=== PATIENT | female | born 1945 | race African-American/Black ===

== ENCOUNTER 2025-07-07 17:31 | Inpatient (IN) | payer MEDICARE ==
[~2025-07-07] VITALS: Ht 160 cm; Wt 97.2 kg
[~2025-07-07 17:31] MED LIST: LOSA100T33; OMEP20CA4 PO
[2025-07-07 18:36] LABS: BASOPHILS % 0.9 % (0.0-2.0); EOSINOPHILS % 1.1 % (0.0-5.0); HEMATOCRIT. 36.2 % (36.0-48.0); HEMOGLOBIN. 11.8 g/dL (12.0-16.0); LYMPHOCYTES % 16.1 % (20.0-50.0); MEAN PLATELET VOLUME 7.9 fl (7.4-10.4); MONOCYTES % 7.3 % (2.0-8.0); NEUTROPHILS % 74.6 % (40.0-76.0); PLATELET 259 x1000/uL (130-400); RED BLOOD CELL COUNT 3.82 mill/uL (4.2-5.4); RED CELL DISTRIBUTION WIDTH 15.0 % (11.6-14.6)
[2025-07-07 18:46] LABS: CREATININE 0.8 mg/dL (0.6-1.0); PROTEIN TOTAL 8.4 g/dL (6.0-8.3); UREA NITROGEN BLOOD 10 mg/dL (9-23)
[2025-07-07 18:48] LABS: ASPARTATE AMINOTRANSFERASE 24 IU/L (<34); BILIRUBIN DIRECT 0.2 mg/dL (<=3.0); BILIRUBIN TOTAL 0.7 mg/dL (0.1-1.0)
[2025-07-07 19:01] LABS: TROPONIN I HIGH SENSITIVITY 9 ng/L (3.0-34)
[2025-07-07] MEDS: KCL 10MEQ/50ML PREMIX 50 ML IV SCH (19:27)
[2025-07-07] MEDS: POTASSIUM CHLORIDE 20MEQ/PACKET PO ONE (19:27)
[2025-07-07] MEDS: FUROSEMIDE 40MG/4ML VIAL IVP ONE (19:28)
[2025-07-07 22:30] VITALS: BP 148/82; PULSE 87; RESP 18; TEMP 36.5; TEMP 36.5292; O2SAT 99
[2025-07-08] MEDS ORDERED: FURO-151 PO (07:35)
[2025-07-08] MEDS ORDERED: NIFE20CA8 PO (07:38)
[2025-07-08 08:00] VITALS: BP_SYST 117; BP_SYST 139; BP_DIAS 71; BP_DIAS 76; PULSE 90; PULSE 95; RESP 18; TEMP 36.4; TEMP 36.5; O2SAT 96
[2025-07-08] MEDS: ASPIRIN 81MG TABLET PO SCH (09:38)
[2025-07-08] MEDS: FUROSEMIDE 40MG/4ML VIAL IVP SCH (09:38)
[2025-07-08] MEDS: NIFEDIPINE XL 60MG TAB PO SCH (09:39)
[2025-07-08 12:00] VITALS: BP 117/71; PULSE 95; RESP 18; TEMP 36.4; O2SAT 96
[2025-07-08] MEDS: LOSARTAN 100 MG TABLET PO SCH (13:20)
[2025-07-08] MEDS ORDERED: DOCUSATE SODIUM 100MG CAPSULE PO PRN (14:00)
[2025-07-08] MEDS ORDERED: CLONIDINE 0.1MG TABLET PO PRN (14:00)
[2025-07-08] MEDS ORDERED: ACETAMINOPHEN 325MG TABLET PO PRN (14:00)
[2025-07-08] MEDS ORDERED: MAGNESIUM/ALUMINUM HYDROXIDE/SIMETHICONE 30ML UDC PO PRN (14:00)
[2025-07-08] MEDS ORDERED: ONDANSETRON HCL 4MG/2ML INJ IV PRN (14:00)
[2025-07-08] MEDS: PANTOPRAZOLE 40MG DR TABLET PO SCH (14:49)
[2025-07-08 20:00] VITALS: BP 101/56; PULSE 92; RESP 19; TEMP 37; O2SAT 95
[2025-07-08 21:21] LABS: PLATELET 275 x1000/uL (130-400); RED BLOOD CELL COUNT 3.70 mill/uL (4.2-5.4); RED CELL DISTRIBUTION WIDTH 15.4 % (11.6-14.6)
[2025-07-08 21:38] LABS: CREATININE 1.0 mg/dL (0.6-1.0); UREA NITROGEN BLOOD 17 mg/dL (9-23)
[2025-07-09] VITALS (7 sets, daily range): BP systolic 104–128; BP diastolic 57–69; PULSE 69–84; RESP 13–18; TEMP 36.4–36.7; O2SAT 93–96
[2025-07-09 08:22] LABS: BASOPHILS % 0.4 % (0.0-2.0); EOSINOPHILS % 1.6 % (0.0-5.0); HEMATOCRIT. 35.6 % (36.0-48.0); HEMOGLOBIN. 11.6 g/dL (12.0-16.0); LYMPHOCYTES % 14.8 % (20.0-50.0); MEAN PLATELET VOLUME 7.9 fl (7.4-10.4); MONOCYTES % 10.8 % (2.0-8.0); NEUTROPHILS % 72.4 % (40.0-76.0); PLATELET 234 x1000/uL (130-400); RED BLOOD CELL COUNT 3.75 mill/uL (4.2-5.4); RED CELL DISTRIBUTION WIDTH 15.2 % (11.6-14.6)
[2025-07-09 08:32] LABS: CREATININE 1.2 mg/dL (0.6-1.0); UREA NITROGEN BLOOD 21 mg/dL (9-23)
[2025-07-09 08:34] LABS: PHOSPHORUS 4.2 mg/dL (2.5-4.9)
[2025-07-09] MEDS: IPRATROPIUM/ALBUTEROL 0.5-3(2.5)MG/3ML NEB NEB PRN (10:22)
[2025-07-10] VITALS (7 sets, daily range): BP systolic 110–123; BP diastolic 59–74; PULSE 76–94; RESP 16–20; TEMP 36.3–37.3; O2SAT 93–98
[2025-07-10 08:39] LABS: BASOPHILS % 0.5 % (0.0-2.0); EOSINOPHILS % 3.0 % (0.0-5.0); HEMATOCRIT. 35.7 % (36.0-48.0); HEMOGLOBIN. 11.8 g/dL (12.0-16.0); LYMPHOCYTES % 13.2 % (20.0-50.0); MEAN PLATELET VOLUME 8.0 fl (7.4-10.4); MONOCYTES % 10.3 % (2.0-8.0); NEUTROPHILS % 73.0 % (40.0-76.0); PLATELET 220 x1000/uL (130-400); RED BLOOD CELL COUNT 3.79 mill/uL (4.2-5.4); RED CELL DISTRIBUTION WIDTH 15.5 % (11.6-14.6)
[2025-07-10] MEDS ORDERED: FUROSEMIDE 40MG TABLET PO SCH (09:00)
[2025-07-10 09:15] LABS: CREATININE 0.9 mg/dL (0.6-1.0); UREA NITROGEN BLOOD 17 mg/dL (9-23)
[2025-07-10 11:52] LABS: BG BASE EXCESS 10.0 mmol/L (-2.0-3.0); BG CARBOXYHEMOGLOBIN 2.0 % (0.5-1.5); BG DEOXYHEMOGLOBIN 26.0 % (0.0-5.0); BG FRACTION INSPIRED OXYGEN 21; BG HCO3 ACT 37.2 mmol/L (21.0-28.0); BG METHEMOGLOBIN 0.1 % (0.5-1.5); BG OXYGEN SATURATION 73.4 % (94.0-98.0); BG OXYHEMOGLOBIN 71.9 % (94.0-98.0); BG PCO2 62.0 mmHg (32.0-45.0); BG PH 7.396 (7.350-7.450); BG PO2 38.1 mmHg (83.0-108.0); BG SAMPLE SITE RIGHT RADIAL; BG TOTAL HEMOGLOBIN 13.3 g/dL (12.0-16.0); BG VENT MODE ROOM AIR
[2025-07-10] MEDS: IPRATROPIUM/ALBUTEROL 0.5-3(2.5)MG/3ML NEB HHN SCH (21:31)
[2025-07-11] VITALS (9 sets, daily range): BP systolic 102–122; BP diastolic 61–70; PULSE 74–108; RESP 15–20; TEMP 35.8–37; O2SAT 95–99
[2025-07-11 07:40] LABS: CREATININE 0.7 mg/dL (0.6-1.0); UREA NITROGEN BLOOD 13 mg/dL (9-23)
[2025-07-11 07:42] LABS: BASOPHILS % 0.6 % (0.0-2.0); EOSINOPHILS % 2.9 % (0.0-5.0); HEMATOCRIT. 34.4 % (36.0-48.0); HEMOGLOBIN. 11.5 g/dL (12.0-16.0); LYMPHOCYTES % 15.2 % (20.0-50.0); MEAN PLATELET VOLUME 7.8 fl (7.4-10.4); MONOCYTES % 10.8 % (2.0-8.0); NEUTROPHILS % 70.5 % (40.0-76.0); PLATELET 211 x1000/uL (130-400); RED BLOOD CELL COUNT 3.64 mill/uL (4.2-5.4); RED CELL DISTRIBUTION WIDTH 15.2 % (11.6-14.6)
[2025-07-11] MEDS ORDERED: DIPHENHYDRAMINE 50MG/ML VIAL ONE (08:15)
[2025-07-11] MEDS ORDERED: LIDOCAINE HCL 1% 20ML VIAL ONE ×2 (08:15→10:00)
[2025-07-11] MEDS ORDERED: HEPARIN 1000 UNITS/ML 10ML ONE (08:15)
[2025-07-11] MEDS ORDERED: IODIXANOL 320MG/ML 100 ML BOTTLE IV ONE (08:15)
[2025-07-11] MEDS ORDERED: VERAPAMIL HCL 2.5 MG/1 ML 2ML VIAL IV ONE (08:15)
[2025-07-11] MEDS ORDERED: MIDAZOLAM HCL 2 MG/2 ML VIAL ONE (10:00)
[2025-07-11] MEDS ORDERED: FENTANYL CITRATE/PF 50MCG/ML 2ML VIAL ONE (10:01)
[2025-07-11] MEDS ORDERED: ATROPINE SULFATE 1MG/10ML SYR IV PRN (11:30)
[2025-07-11] MEDS ORDERED: ACETAMINOPHEN 325MG TABLET PO PRN (11:30)
[2025-07-12] VITALS (10 sets, daily range): BP systolic 109–134; BP diastolic 52–65; PULSE 59–98; RESP 16–22; TEMP 36.2–36.8; O2SAT 81–100
[2025-07-12] MEDS: GUAIFENESIN 200MG/10ML SUGAR FREE UDC PO PRN (07:00)
[2025-07-13] VITALS (9 sets, daily range): BP systolic 100–125; BP diastolic 51–67; PULSE 72–88; RESP 15–17; TEMP 36.3–37.1; O2SAT 90–97
[2025-07-14] VITALS (9 sets, daily range): BP systolic 98–119; BP diastolic 53–63; PULSE 77–88; RESP 16–20; TEMP 35.8–36.7; O2SAT 92–100
[2025-07-14 00:04] LABS: BASOPHILS % 0.7 % (0.0-2.0); EOSINOPHILS % 3.5 % (0.0-5.0); HEMATOCRIT. 35.9 % (36.0-48.0); HEMOGLOBIN. 11.6 g/dL (12.0-16.0); LYMPHOCYTES % 16.7 % (20.0-50.0); MEAN PLATELET VOLUME 7.9 fl (7.4-10.4); MONOCYTES % 11.4 % (2.0-8.0); NEUTROPHILS % 67.7 % (40.0-76.0); PLATELET 219 x1000/uL (130-400); RED BLOOD CELL COUNT 3.75 mill/uL (4.2-5.4); RED CELL DISTRIBUTION WIDTH 14.9 % (11.6-14.6)
[2025-07-14 00:21] LABS: CREATININE 0.9 mg/dL (0.6-1.0); UREA NITROGEN BLOOD 16 mg/dL (9-23)
[2025-07-14] MEDS: FUROSEMIDE 40MG TABLET PO SCH (14:54)
[2025-07-14] MEDS ORDERED: NIFE-32 PO (17:19)
[2025-07-14] MEDS ORDERED: ASPI-1160 PO (17:19)
[2025-07-14] MEDS: PNEUMOCOCCAL 20-VAL CONJ-DIP CRM 0.5ML IM ONE (19:07)
[2025-07-14] MEDS: INFLUENZA VACCINE 05/PF 0.5 ML SYRINGE IM ONE (19:13)
[2025-07-15] VITALS: BP 102/56; PULSE 85; RESP 18; TEMP 36.2; O2SAT 99
[2025-07-15 02:54] VITALS: PULSE 98; RESP 16; O2SAT 90
[2025-07-15 04:00] VITALS: BP 101/54; PULSE 89; RESP 17; TEMP 35.8; O2SAT 96
[2025-07-15 08:00] VITALS: BP 105/62; PULSE 89; RESP 18; TEMP 36.3; O2SAT 95
[2025-07-15 11:14] VITALS: BP 97/56; PULSE 82; RESP 18; TEMP 97.2
== END 2025-07-15 13:38 | disposition home health service (06) | DRG 286 ==
LOC: ER 17:31 → 6EST 20:50 → EDBEDREQ 21:06 → EDBEDREQTM 21:06 → ENRESERV 21:51 → 5WST 07-09 00:54
PROVIDERS: ADMIT Family Medicine Adult Medicine; ATTEND Family Medicine Adult Medicine
PROC: 4A023N7 Measurement of Cardiac Sampling and Pressure, Left Heart, Percutaneous Approach (ICD-10-PCS; principal; 2025-07-11)
PROC: B211YZZ Fluoroscopy of Multiple Coronary Arteries using Other Contrast (ICD-10-PCS; 2025-07-11)
DX: I11.0 Hypertensive heart disease with heart failure (principal); I50.43 Acute on chronic combined systolic (congestive) and diastolic (congestive) heart failure; J96.01 Acute respiratory failure with hypoxia; D64.9 Anemia, unspecified; I25.110 Atherosclerotic heart disease of native coronary artery with unstable angina pectoris; Z79.899 Other long term (current) drug therapy
CPT/HCPCS: 36415; 36600; 71045; 80048; 80076; 82375; 82805; 82962; 83735; 83880; 84100; 84484; 85025; 85027; 90686; 90732; 93005; 93306; 93458; 93970; 94070; 94618; 94640; 94664; 96361; 96374; 97162; 97165; 97535; 99285; A4606; A4615; C1769; C1887; C1893; J1200; J1644; J1938; J2003; J2250; J3010; J3480; J3490; Q9967